=== PATIENT | female | born 1975 | race Caucasian/White ===

== ENCOUNTER 2018-12-16 20:26 | Emergency (ER) | payer OTHER ==
[~2018-12-16] VITALS: Ht 177.8 cm; Wt 127.0 kg
[~2018-12-16 20:26] MED LIST: ASPIRIN EC325 MG PO; FLUOXETINE HCL20 MG PO; HYDROCHLOROTH12.5 M1 PO; NORCO 5-325 TA1 EACH PO; PROTONIX40 MG PO; ZOFRAN4 MG PO
[2018-12-16] MEDS ORDERED: NAPROXEN500 MG PO (22:01)
== END 2018-12-16 22:15 | disposition home or self-care (01) ==
LOC: ED 20:26
DX: I80.02 Phlebitis and thrombophlebitis of superficial vessels of left lower extremity (principal); I10 Essential (primary) hypertension; Z88.8 Allergy status to other drugs, medicaments and biological substances
CPT/HCPCS: 93971; 99283-25

== ENCOUNTER 2025-07-01 09:58 | Day surgery (SDC) | payer OTHER ==
[~2025-07-01] VITALS: Ht 175.3 cm; Wt 143.2 kg
[~2025-07-01 09:58] MED LIST changes: +CLARITIN10 MG PO; +IBLOOD GLUCOSE TEST STRIP 1 EA TEST VI PRN; +LACTATED RINGER'S 1,000 ML IV SCH; +LIDOCAINE HCL 1% 5 ML SDV INJ ONE; +LOSARTAN POTASS50 MG PO; +MAGNESIUM400 M1 PO; +MIDAZOLAM HCL 5 MG/5 ML VIAL IV PRN; +NAPROXEN500 MG PO; +RESTASIS MULTI5.5 ML OP; +[UNRECOGNIZED DRUG - OTHER] PO; +fentaNYL citrate 100 MCG/2 ML VIAL IV PRN
[2025-07-01 10:19] VITALS: BP 143/94
[2025-07-01] MEDS ORDERED: MIDAZOLAM HCL 5 MG/5 ML VIAL ONE (11:18)
[2025-07-01] MEDS ORDERED: fentaNYL citrate 100 MCG/2 ML VIAL ONE (11:18)
--- NOTE | 2025-07-01 12:18 | NUR ---
07/01/25 Mira8 Ashley Cha 1209- PT PRESENTS TO PACU, LEFT LATERAL POSITION, REACTIVE TO STIMULUS, SLIGHT EYE OPENING, AND BACK TO SLEEP. ABD SOFT, NON DISTENDED. LR COMPLETE TO RW IV. O2 AT 3L PER NC, BREATHING EVEN AND NON LABORED. ALL MONITORS IN PLACE. 1215- PT OPENS EYES TO VERBAL STIMULI, DR DOEWLL AT BEDSIDE TO DISCUSS FINDINGS. ENCOURGAED TO PASS GAS. DENIES PAIN OR NAUSEA.
[2025-07-01 12:38] VITALS: BP 144/88
--- NOTE | 2025-07-02 14:10 | OR ---
[facility] [address] [place], [place] [address] Signed DATE OF OPERATION: 07/01/2025 SURGEON: Bear Dowell MD PREOPERATIVE DIAGNOSIS: Positive Cologuard test. POSTOPERATIVE DIAGNOSES: 1. Small polyps proximal left colon. 2. Diverticulosis. PROCEDURE: Total colonoscopy to cecum with cold snare polypectomy x2, cold morcellation polypectomy x1. ANESTHESIA: Intravenous sedation, fentanyl 100 mcg and Versed 10 mg. INDICATION: This 50-year-old woman is a patient of IVELISSE Petersen. She underwent colon screening by Cologuard test which was found to be positive. She did not have colon evaluation in the past. Her Cologuard test was positive at the end of June 2024 nearly a year ago. She has no known family history of colon cancer, though was adopted, and her family history is poorly known generally. She understands the risk of colonoscopy including but not limited to bleeding, infection, and perforation and wished to proceed. FINDINGS: The prep was excellent. Complete colonoscopy was undertaken to the cecum with full intubation of the cecum. She had diverticula of the sigmoid and left colon. There were three very subtle and small and innocuous appearing polyps of the proximal and descending colon, all excised completely, 2 with cold snare technique, the other with cold morcellation technique. DESCRIPTION OF PROCEDURE: The patient was brought to the endoscopy suite and placed in lateral decubitus position, given intravenous sedation to the point of slurred speech and nystagmus. Digital rectal examination was normal. Full cardiopulmonary monitoring was maintained. An Olympus video colonoscope was passed in the rectum and manipulated throughout the Electronically Signed By: BEAR DOWELL MD 07/02/25 1410 PATIENT NAME: KATELIN RODRIGES OPERATIVE REPORT DATE OF : 73 REPORT #: [id number] PHYSICIAN: BEAR DOWELL MD PCP: LUANA ARAUJO PA-C REPORT IS CONFIDENTIAL AND NOT TO BE RELEASED WITHOUT AUTHORIZATION [facility] [address] [place], [place] [address] Signed colon, ultimately intubating the cecum itself. The ileocecal valve and appendiceal orifice were normal. The scope was withdrawn from that point and examination throughout showed no sign of abnormality until the proximal descending colon where diverticula were noted once again and the small subtle somewhat flat appearing polyp was noted. Narrow band imaging helped better characterize this. Multiple bites were taken to excise the area which was considered likely adenomatous. In the course of doing this, two other small polyps nearby were seen and similarly excised although on that occasion with cold snare technique. Three polyps in total were noted. The scope was then withdrawn. The remaining colon was examined fully showing diverticulosis but no other polyps. Retroflexed view of the rectum was normal. Scope was removed. The patient was taken to the recovery room in good condition. CONCLUDING DIAGNOSIS: Polyps x3 and diverticulosis. PLAN: Recommend repeat colonoscopy in 3 to 5 years, sooner if symptoms should develop. Maintain high-fiber diet. MD FADUMO Crockett/JONNY /[id number] cc: IVELISSE Petersen Copies: ~ Electronically Signed By: BEAR DOWELL MD 07/02/25 1410 PATIENT NAME: KATELIN RODRIGES OPERATIVE REPORT DATE OF : 73 REPORT #: [id number] PHYSICIAN: BEAR DOWELL MD PCP: LUANA ARAUJO PA-C REPORT IS CONFIDENTIAL AND NOT TO BE RELEASED WITHOUT AUTHORIZATION
--- NOTE | 2025-07-06 16:11 | PATH ---
[facility] [address] [facility] [place] [place] [address] Signed SPECIMEN(S): A DESCENDING POLYP SPECIMEN(S): B DESCENDING POLYP SPECIMEN(S): C DESCENDING POLYP SPECIMEN SOURCE: A. DESCENDING POLYP B. DESCENDING POLYP C. DESCENDING POLYP CLINICAL HISTORY: Positive Cologuard. Post-polyp A-C) polyp FINAL PATHOLOGIC DIAGNOSIS: A. Descending polyp: - Hyperplastic polyp (multiple fragments). B. Descending polyp: - Hyperplastic polyp (one fragment). C. Descending polyp: - Hyperplastic polyp (one fragment). JVR:[facility] MICROSCOPIC EXAMINATION: Histologic sections of all submitted blocks are examined by light microscopy. These findings, together with the gross examination, support the pathologic diagnosis. GROSS DESCRIPTION: A. The specimen, labeled and designated "Luke, descending polyp," is received in formalin and consists of five zuñiga soft tissue fragments, ranging from 0.1-0.4 cm. Entirely submitted in (A1). B. The specimen, labeled and designated "Luke, descending polyp #2," is received in formalin and consists of two zuñiga soft tissue fragments, ranging from 0.2-0.3 cm. Entirely submitted in (B1). C. The specimen, labeled and designated "Luke, descending polyp #3," is received in formalin and consists of one zuñiga soft tissue fragment, 0.3 cm. Entirely submitted in (C1). AB (under the direct supervision of a pathologist) The Gross Description was prepared using a voice recognition system. The report was reviewed for accuracy; however, sound-alike word errors, addition and/or deletions may occur. If there is any PATIENT NAME: KATELIN RODRIGES PATHOLOGY DATE OF : 73 REPORT #: [id number] PHYSICIAN: OCTAVIO DONALD PCP: LUANA ARAUJO PA-C REPORT IS CONFIDENTIAL AND NOT TO BE RELEASED WITHOUT AUTHORIZATION [facility] [address] [facility] [place] [place] [address] Signed question about this report, please contact Client Services. PERFORMING LABORATORY: Technical component was performed by [facility], [address] [place] [id number] (CLIA# [id number]). Professional interpretation was performed by [facility], [address] [place] [id number] (CLIA#: [id number]). Diagnostician: Tico Luis MD Pathologist Electronically Signed 07/06/2025 Copies: ~ PATIENT NAME: KATELIN RODRIGES PATHOLOGY DATE OF : 73 REPORT #: [id number] PHYSICIAN: OCTAVIO DONALD PCP: LUANA ARAUJO PA-C REPORT IS CONFIDENTIAL AND NOT TO BE RELEASED WITHOUT AUTHORIZATION
== END 2025-07-01 12:50 | disposition home or self-care (01) ==
LOC: DS 09:58
PROVIDERS: ATTEND Surgery
PROC: 0DBM8ZZ Excision of Descending Colon, Via Natural or Artificial Opening Endoscopic (ICD-10-PCS; principal; 2025-07-01 11:00)
DX: Z12.11 Encounter for screening for malignant neoplasm of colon (principal); K63.5 Polyp of colon; K57.30 Diverticulosis of large intestine without perforation or abscess without bleeding; K21.9 Gastro-esophageal reflux disease without esophagitis; I10 Essential (primary) hypertension; E66.01 Morbid (severe) obesity due to excess calories; Z68.42 Body mass index [BMI] 45.0-49.9, adult; Z79.899 Other long term (current) drug therapy; Z91.09 Other allergy status, other than to drugs and biological substances
CPT/HCPCS: 99153; G0500; J2250; J3010; J7121